=== PATIENT | male | born 1945 | race Caucasian/White ===

== ENCOUNTER → 2019-10-02 08:56 | Outpatient (CLI) | payer MEDICARE, OTHER, SELFPAY ==
--- NOTE | 2019-10-02 | DI.ECHO.S_ITS ---
[facility] +---------+ : : [address] : [place] : : : : [id number] : : : : Phone: [phone]+ Echocardiogram Report + + :Name: ELOY SELF JR Study Date: 10/02/2019 Height: 72 in : :[facility] Weight: 262 lb : : Gender: Male BSA: 2.4 m2 : :: 1945 Age: 74 yrs BP: 142/84 mmHg: :Reason For Study: murmur : :Ordering Physician: Juan Diego : :Librado Amaro Performed By: Bernie Landers : :Referring: JUAN DIEGO AMARO : + + Interpretation Summary The left ventricle is normal in size. The ejection fraction is estimated to be 55-60%. The right ventricle is normal in size and function. No significant valvular pathology seen. Procedure: A two-dimensional transthoracic echocardiogram with color flow and Doppler was performed. The study quality was technically adequate. Comparison is made with the echocardiogram of 10/04/2013. The patient was in sinus bradycardia with heart rates between 54-64 bpm during the exam. Left Ventricle: The left ventricle is normal in size. Left ventricular wall thickness is mildly increased. There is no thrombus. The ejection fraction is estimated to be 55-60%. Septal motion is consistent with conduction abnormality. MV E/A: 1.0 Med Peak E' Jerzy: 7.8 cm/sec E/E' med: 10.0. Right Ventricle: The right ventricle is normal in size and function. Atria: Both atria are normal in size. There is no Doppler evidence for an interatrial shunt. Mitral Valve: There is mild mitral annular calcification. There is trace mitral regurgitation. Aortic Valve: The aortic valve is trileaflet. The aortic valve is mildly calcified. The aortic valve is not well visualized. There is no aortic valve stenosis. No aortic regurgitation is present. Tricuspid Valve: The tricuspid valve is not well visualized, but is grossly normal. The right ventricular systolic pressure is estimated to be at least 19 mmHg based on an estimated right atrial pressure of 3 mm Hg. There is trace tricuspid regurgitation. Pulmonic Valve: The pulmonic valve is not well visualized. There is no pulmonic valvular regurgitation. Great Vessels: The aortic root is mildly dilated. The ascending aorta is at the upper limits of normal in size. The IVC is of normal diameter and collapses greater than 50% with a sniff. This suggests a low right atrial pressure of 3 mm Hg. Pericardium/ Pleura There is no pericardial effusion. There is no pleural effusion. MMode/2D Measurements & Calculations LVIDd: 4.4 cm LVOT diam: 2.1 cm LVIDs: 3.1 cm Ao root diam: 3.7 cm FS: 30.0 % asc Aorta Diam: 3.9 cm EPSS: 0.96 cm Ao Arch Diam (Prox Trans): 3.3 cm IVSd: 1.1 cm LVPWd: 1.2 cm LV verduzco. diameter/BSA (cm/m^2): 1.9 LV sys. diameter/BSA (cm/m^2): 1.3 LA A2 area: 22.3 cm2 RA long axis: 5.0 cm LA A4 area: 17.5 cm2 RA area: 17.1 cm2 LA length (vol): 5.3 cm RA vol: 49.4 ml LA vol: 62.3 ml RA : 20.7 ml/m2 LA vol index: 26.1 ml/m2 IVC diam: 1.3 cm RVD1 (basal): 3.5 cm TAPSE: 2.5 cm Doppler Measurements & Calculations Ao V2 max: 159.4 cm/sec LVOT Max Jerzy: 113.0 cm/sec Ao V2 mean: 100.8 cm/sec LV V1 max P.1 mmHg Ao max P.2 mmHg LV V1 VTI: 28.5 cm Ao mean P.7 mmHg KATHI(I,D): 3.1 cm2 Ao V2 VTI: 33.1 cm KATHI(V,D): 2.6 cm2 sev ratio: 0.86 KATHI indexed to BSA (cm^2/m^2): 1.3 MV E max jerzy: 78.0 cm/sec TR max jerzy: 205.8 cm/sec MV A max jerzy: 76.5 cm/sec TR max P.9 mmHg MV E/A: 1.0 PA V2 max: 69.3 cm/sec Med Peak E' Jerzy: 7.8 cm/sec PA V2 mean: 44.6 cm/sec E/E' med: 10.0 PA mean P.93 mmHg Lat Peak E' Jerzy: 8.6 cm/sec PA Accel Time: 0.15 sec E/E' lat: 9.0 E/e' average: 9.5 MV dec time: 0.20 sec MV P1/2t: 59.5 msec MV P1/2t max jerzy: 79.7 cm/sec SV(LVOT): 102.6 ml MVA(P1/2t): 3.7 cm2 Reading Physician:02:29 PM
== END ==
PROVIDERS: PCP Family Medicine; Referring Provider Internal Medicine Cardiovascular Disease; Visit Provider Internal Medicine Cardiovascular Disease
DX: R01.1 Cardiac murmur, unspecified (principal)
CPT/HCPCS: 93306